=== PATIENT | female | born 1945 | race Caucasian/White ===

== ENCOUNTER 2022-10-31 12:59 | Outpatient (CLI) | payer MEDICARE, BC | END 2022-10-31 23:59 | disposition home or self-care (01) | LOC: RAD 12:59 | PROVIDERS: ATTEND Dietitian, Registered | DX: J98.11 Atelectasis (principal); J41.0 Simple chronic bronchitis; I70.0 Atherosclerosis of aorta | CPT/HCPCS: 71046 ==